=== PATIENT | male | born 1995 | race African-American/Black ===

== ENCOUNTER 2024-01-24 03:10 | Emergency (ER) | payer OTHER ==
[~2024-01-24] VITALS: Ht 177.8 cm; Wt 80.3 kg
[2024-01-24] MEDS: LORAZEPAM 1 MG TABLET PO ONE (04:35)
[2024-01-24] MEDS ORDERED: LORAZEPAM 1 MG TABLET ONE (04:35)
[2024-01-24 04:40] LABS: BASOPHILS # (AUTO) 0.1 K/uL (0.0-0.2); BASOPHILS % (AUTO) 0.7 % (0.0-2.0); EOSINOPHILS # (AUTO) 0.4 K/uL (0.0-0.7); EOSINOPHILS % (AUTO) 5.2 % (0.0-6.0); HEMATOCRIT 44 % (39-51); HEMOGLOBIN 15.1 g/dL (13.5-17.5); LYMPHOCYTES % (AUTO) 36.1 % (20.0-44.0); MEAN CORPUSCULAR HEMOGLOBIN 32 PG (26.0-33.0); MEAN CORPUSCULAR HGB CONC 35 g/dl (31.0-36.0); MEAN CORPUSCULAR VOLUME 92 fL (80-96); MONOCYTES # (AUTO) 0.6 K/uL (0.1-1.30); MONOCYTES % (AUTO) 6.7 % (2.0-12.0); NEUTROPHILS # (AUTO) 4.3 K/uL (1.8-8.9); NEUTROPHILS % (AUTO) 51.3 % (43.0-81.0); PLATELET COUNT (AUTO) 271 K/uL (150-450); RED BLOOD CELL COUNT(AUTO) 4.76 MIL/uL (4.5-6.0); RED CELL DISTRIBUTION WIDTH 12.9 % (11.5-15.0); WHITE BLOOD COUNT (AUTO) 8.3 K/uL (4.3-11.0)
[2024-01-24 04:48] LABS: CALCIUM, SERUM 8.8 mg/dL (8.5-10.1); CARBON DIOXIDE 32 mmol/L (21-32); CHLORIDE 103 mmol/L (98-107); CREATININE 1.1 mg/dL (0.6-1.3); GLUCOSE 105 mg/dL (74-106); POTASSIUM 3.7 mmol/L (3.5-5.1); SODIUM SERUM 140 mmol/L (136-145); UREA NITROGEN, BLOOD 11 mg/dL (7-18)
[2024-01-24 04:55] LABS: ALANINE AMINOTRANSFERASE 26 U/L (12-78); ALBUMIN 3.8 g/dL (3.4-5.0); ALKALINE PHOSPHATASE 98 U/L (46-116); ASPARTATE AMINOTRANSFERASE 40 U/L (15-37); BILIRUBIN,DIRECT 0.1 mg/dL (0.0-0.2); BILIRUBIN,TOTAL 0.4 mg/dL (0.2-1.0); TOTAL PROTEIN, SERUM 6.8 g/dL (6.4-8.2)
[2024-01-24 05:00] LABS: INR 1.03 (0.91-1.10); PROTHROMBIN TIME 10.9 SECS (9.2-11.1)
[2024-01-24 05:32] VITALS: BP 128/71; TEMP 97.8; O2SAT 99
== END 2024-01-24 05:33 | disposition home or self-care (01) ==
LOC: ER 03:16
DX: R07.9 Chest pain, unspecified (principal); F41.9 Anxiety disorder, unspecified
CPT/HCPCS: 36415; 71045-TC; 80048-TC; 80076-TC; 84484-TC; 85025-TC; 85730-TC

== ENCOUNTER 2024-10-17 08:28 | Emergency (ER) | payer OTHER ==
[~2024-10-17] VITALS: Ht 177.8 cm; Wt 81.6 kg
[2024-10-17 08:59] VITALS: BP 123/78; TEMP 101.2
[2024-10-17] MEDS ORDERED: BENZ-13 PO (09:12)
[2024-10-17] MEDS ORDERED: ALBU18HF2 INH (09:12)
[2024-10-17] MEDS ORDERED: BENZONATATE 100 MG CAPSULE PO ONE (09:19)
[2024-10-17] MEDS ORDERED: IBUPROFEN 400 MG TABLET ONE (09:19)
[2024-10-17] MEDS ORDERED: PSEUDOEPHEDRINE HCL 30 MG TABLET ONE (09:19)
[2024-10-17 09:20] VITALS: O2SAT 98
[2024-10-17] MEDS: PSEUDOEPHEDRINE HCL 30 MG TABLET PO ONE (09:23)
[2024-10-17] MEDS: IBUPROFEN 400 MG TABLET PO ONE (09:23)
[2024-10-17] MEDS: BENZONATATE 100 MG CAPSULE PO PRN (09:23)
== END 2024-10-17 09:21 | disposition home or self-care (01) ==
LOC: ER 08:28
DX: B34.9 Viral infection, unspecified (principal); R09.81 Nasal congestion; R05.9 Cough, unspecified